=== PATIENT | female | born 1990 | race Caucasian/White ===

== ENCOUNTER 2023-04-11 13:12 | Outpatient (OUT) | payer OTHER, SELFPAY ==
[2023-04-11 14:05] LABS: HCG Quantitative 18 mIU/mL
[2023-04-12 13:07] LABS: Progesterone 10.4 ng/mL (.)
== END 2023-04-11 13:13 | disposition home or self-care (01) ==
LOC: LAB 13:17
PROVIDERS: PCP Obstetrics & Gynecology; Visit Provider Obstetrics & Gynecology
DX: Z32.01 Encounter for pregnancy test, result positive (principal)
CPT/HCPCS: 36415; 84144; 84702

== ENCOUNTER 2024-08-21 16:18 | Outpatient (OUT) | payer OTHER, SELFPAY ==
--- OUTSIDE RECORDS SUMMARY | 2024-08-21 16:22 | XMS_ITS | Clinical Summary ---
Author Organization [facility] Address [address] [place] [address] Care Team Providers Care Stave Inspector Name Role Phone Unallocated, Noms Provider Primary Care Provi tammie Allergies No known active allergies Medications aspirin 81 MG EC tablet Take 81 mg by mouth Daily Active Social History Tobacco Use Types Packs/Day Years Used Date Smoking Tobacco: Never Smokeless Tobacco: Never Tobacco Cessation:Counseling Given: Not Answered Alcohol Use Standard Drinks/Week Comments Never 0 (1 standard drink = 0.6 oz pur e alcohol) Comments Unknown Sex and Gender Information Value Date Recorded Sex Assigned at Not on file Legal Sex Female 12:39 PM EDT Gender Identity Not on file Sexual Orientation Not on file Last Filed Vital Signs Vital Sign Reading Time Taken Comments Blood Pressure 114/82 08/06/2023 1:10 PM EDT Pulse 82 08/13/2023 9:54 AM EDT Temperature 36.1 C (97 F) 08/13/2023 9:54 AM EDT Respiratory Rate 18 08/13/2023 9:54 AM EDT Oxygen Saturation 98% 08/13/2023 9:54 AM EDT Inhaled Oxygen Concentration - - Weight 82.6 kg (182 lb) 08/13/2023 9:54 AM EDT Height - - Body Mass Index - - Plan of Treatment Health Maintenance Due Date Last Done Comments Pap Smear 06/15/2011 Cervical Cancer Screening 2020 HPV/Cotest 2020 Influenza Vaccine (Season Ended) 2024 02/18/2023, 12/30/2021, 12/27/2020, Additional history exists Insurance [employer] Care Teams Stave Inspector Relationship Specialty Start Date End Date Unallocated, Noms Errol, [address] [place] [address] PCP - General Family Medicine 08/06/23
--- OUTSIDE RECORDS SUMMARY | 2024-08-21 16:22 | XMS_ITS | Encounter Summary ---
Author Organization [facility] Address [address] [place] [address] Care Team Providers Care Commercial Ocean Clammer Name Role Phone Unavailable Primary Care Provider Unavailabl e Source Comments In the event this information is protected by the Federal Confidentiality of Alcohol and Drug AbusePatient Records regulations: The Federal rules restrict any use of the information to criminally investigate or prosecute any alcohol or drug abuse patient.[facility] Encounter Details Date Type Department Care Team (Latest Contact Info) Description 02/04/2021 Get Medical Advice Reproductive Endocrinology Infertility [address] [place] [address] Placido Crabtree MD [address] [place] [address] Progesterone blood test Social History Tobacco Use Types Packs/Day Years Used Date Smoking Tobacco: Never Smokeless Tobacco: Never Alcohol Use Standard Drinks/Week Comments Yes 0 (1 standard drink = 0.6 oz pur e alcohol) occasionally Area Deprivation Index Answer Date Xavier rded National Score (1-100), lower number is lower ri sk Not on file 10/09/2020 State Score (1-10), lower number is lower risk N ot on file 10/09/2020 Data from: https://www.[facility] hospitalatlas.[facility]/. Last address used for calculation Not on file 10/09/2020 Comments No Sex and Gender Information Value Date Recorded Sex Assigned at Female 10/07/2020 8:08 PM EDT Legal Sex Female 1:33 PM EDT Gender Identity Female 10/07/2020 8:08 PM EDT Sexual Orientation Straight 10/07/2020 8: 08 PM EDT documented as of this encounter Plan of Treatment Not on file documented as of this encounter Visit Diagnoses Not on filedocumented in this encounter
--- OUTSIDE RECORDS SUMMARY | 2024-08-21 16:22 | XMS_ITS | Encounter Summary ---
Author Organization [facility] Address [address] [place] [address] Care Team Providers Care Behavioral Health Technician Name Role Phone Unavailable Primary Care Provider Unavailabl e Source Comments In the event this information is protected by the Federal Confidentiality of Alcohol and Drug AbusePatient Records regulations: The Federal rules restrict any use of the information to criminally investigate or prosecute any alcohol or drug abuse patient.[facility] Encounter Details Date Type Department Care Team (Latest Contact Info) Description 03/30/2021 Get Medical Advice Reproductive Endocrinology Infertility [address] [place] [address] Placido Crabtree MD [address] [place] [address] Question about scheduling my 's testing Social History Tobacco Use Types Packs/Day Years [...] N ot on file 10/09/2020 Data from: https://www.neighborhoodatlas.[facility]/. Last address used for calculation Not on [...]
--- OUTSIDE RECORDS SUMMARY | 2024-08-21 16:22 | XMS_ITS | Encounter Summary ---
Author Organization [facility] Address [address] [place] [address] Care Team Providers Care Reed Man Name Role Phone Unavailable Primary Care Provider Unavailabl e Source Comments In the event this information is protected by the Federal Confidentiality of Alcohol and Drug AbusePatient Records regulations: The Federal rules restrict any use of the information to criminally investigate or prosecute any alcohol or drug abuse patient.[facility] Encounter Details Date Type Department Care Team (Latest Contact Info) Description 02/04/2021 Patient Msg Reproductive Endocrinology Infertility [address] [place] [address] Placido Crabtree MD [address] [place] [address] I will be a few min late Social History Tobacco Use Types Packs/Day Years [...] N ot on file 10/09/2020 Data from: https://www.neighborhoodatlas.[facility]/. Last address used for calculation Not [...]
--- OUTSIDE RECORDS SUMMARY | 2024-08-21 16:22 | XMS_ITS | Encounter Summary ---
Author Organization [facility] Address [address] [place] [address] Care Team Providers Care Maintenance Painter Apprentice Name Role Phone Unavailable Primary Care Provider Unavailabl e Source Comments In the event this information is protected by the Federal Confidentiality of Alcohol and Drug AbusePatient Records regulations: The Federal rules restrict any use of the information to criminally investigate or prosecute any alcohol or drug abuse patient.[facility] Encounter Details Date Type Department Care Team (Latest Contact Info) Description 10/13/2020 Patient Msg Reproductive Endocrinology Infertility [address] [place] [id number] Provider, [facility] Regarding Scheduling the Pelvic US as requested by Dr. Hodges Social History Tobacco Use Types Packs/Day Years [...] N ot on file 10/09/2020 Data from: https://www.neighborhoodatlas.med[facility].edu/. Last address used for calculation Not on file 10/09/2020 Comments No Sex and Gender Information Value Date Recorded Sex Assigned at Female 10/07/2020 8:08 PM EDT Legal Sex Female 1:33 PM EDT Gender Identity Female 10/07/2020 8:08 PM EDT Sexual Orientation Straight 10/07/2020 8: 08 PM EDT COVID-19 Exposure Response Date Recorded In the last month, have you been in contact with someone who was confirmed or suspected to have Coronavirus / COVID-19? No / Unsure 10/13/2020 1:21 PM EDT documented as of this encounter Plan of Treatment Not on file documented as of this encounter Visit Diagnoses Not on filedocumented in this encounter
--- OUTSIDE RECORDS SUMMARY | 2024-08-21 16:22 | XMS_ITS | Clinical Summary ---
Author Organization [facility] Address [address] [place] [address] Care Team Providers Care Equity Structurer Name Role Phone Unavailable Primary Care Provider Unavailabl e Allergies Active Allergy Reactions Criticality Noted Date Comments Seasonal Allergies Other: See Comments 10/10/19 21 Hay fever Medications Cetirizine (ZYRTEC) 10 mg cap Take 10 mg by mouth once daily. 09/07/2020 Active L. mariano/L. hugo/L. hudson/L. rham ([facility]AL) Take 1 tablet by mouth once daily. 05/19/2020 Active PNV with Ca,No.74-Iron-FA ( LOW IRON) 27 mg iron- 1 mg tab Take 1 tablet by mouth once daily. 04/21/2019 Active Family History Medical History Relation Comments 2 brothers Brother A fib Father Kidney stones Father precancerous skin lesions removed Father Liver Cancer Maternal Grandfather Hypertension Maternal Grandmother esophagus issues Maternal Grandmother Hypertension Mother Lipids Mother esophageal cancer Paternal Grandfather Breast Cancer Paternal Grandmother gi cancer Paternal Grandmother 1 sister Sister Relation Status Comments Brother Alive Father Alive Maternal Grandfather Maternal Grandmother Mother Alive Paternal Grandfather Paternal Grandmother Sister Alive Social History Tobacco Use Types Packs/Day Years [...] N ot on file 10/09/2020 Data from: https://www.neighborhoodatlas.[facility]/. Last address used for calculation Not on file 10/09/2020 Comments No Sex and Gender Information Value Date Recorded Sex Assigned at Female 10/07/2020 8:08 PM EDT Legal Sex Female 1:33 PM EDT Gender Identity Female 10/07/2020 8:08 PM EDT Sexual Orientation Straight 10/07/2020 8: 08 PM EDT Last Filed Vital Signs Vital Sign Reading Time Taken Comments Blood Pressure - - Pulse - - Temperature - - Respiratory Rate - - Oxygen Saturation - - Inhaled Oxygen Concentration - - Weight - - Height 157.5 cm (5' 2 ) 10/09/2020 3:48 PM EDT Body Mass Index - - Plan of Treatment Health Maintenance Due Date Last Done Comments Anxiety Screening 2008 Depression Screening 2008 HIV Screening 2008 Hepatitis C Screening 2008 DTaP,Tdap,Td Vaccine (1 - Tdap) 2009 Hepatitis B Vaccine (1 of 3 - 19+ 3-dose series) 06/14 Cervical Cancer Screening 04/17/2023 04/17/2020 Covid-19 Vaccine ( - season) 2023 Influenza Vaccine (Season Ended) 2024 01/24/20 16 Insurance [employer]
--- OUTSIDE RECORDS SUMMARY | 2024-08-21 16:22 | XMS_ITS | Encounter Summary ---
Author Organization [facility] Address [address] [place] [address] Care Team Providers Care Hotel Sales Manager Name Role Phone Unavailable Primary Care Provider Unavailabl e Source Comments In the event this information is protected by the Federal Confidentiality of Alcohol and Drug AbusePatient Records regulations: The Federal rules restrict any use of the information to criminally investigate or prosecute any alcohol or drug abuse patient.[facility] Encounter Details Date Type Department Care Team (Late st Contact Info) Description 10/09/2020 Patient Msg Reproductive Endocrinology Infertility [address] [place] [address] Placido Diop MD [address] [place] [address] Plans; Social History Tobacco Use Types Packs/Day Years [...] N ot on file 10/09/2020 Data from: https://www.neighborhoodatlas.medicine.[facility]/. Last address used for calculation Not on [...] have Coronavirus / COVID-19? No / Unsure 10/09/2020 3:55 PM EDT documented as of this encounter Plan of Treatment Not on file documented as of this encounter Visit Diagnoses Not on filedocumented in this encounter
--- OUTSIDE RECORDS SUMMARY | 2024-08-21 16:22 | XMS_ITS | Encounter Summary ---
Author Organization [facility] Address [address] [place] [address] Care Team Providers Care Corporate Paralegal Name Role Phone Unavailable Primary Care Provider Unavailabl e Source Comments In the event this information is protected by the Federal Confidentiality of Alcohol and Drug AbusePatient Records regulations: The Federal rules restrict any use of the information to criminally investigate or prosecute any alcohol or drug abuse patient.[facility] Encounter Details Date Type Department Care Team (Latest Contact Info) Description 12/17/2020 Get Medical Advice Reproductive Endocrinology Infertility [address] [place] [address] Placido Crabtree MD [address] [place] [address] RE: Visit Follow Up Question Social History Tobacco Use Types Packs/Day Years [...] N ot on file 10/09/2020 Data from: https://www.neighborhoodatlas.[facility]/. Last address used for calculation Not on [...]
--- OUTSIDE RECORDS SUMMARY | 2024-08-21 16:22 | XMS_ITS | Encounter Summary ---
Author Organization [facility] Address [address] [place] [address] Care Team Providers Care Furrier Shop Supervisor Name Role Phone Unavailable Primary Care Provider Unavailabl e Source Comments In the event this information is protected by the Federal Confidentiality of Alcohol and Drug AbusePatient Records regulations: The Federal rules restrict any use of the information to criminally investigate or prosecute any alcohol or drug abuse patient.[facility] Encounter Details Date Type Department Care Team (Late st Contact Info) Description 02/11/2021 Patient Msg Reproductive Endocrinology Infertility [address] [place] [address] Placido Diop MD [address] [place] [address] your blood test Social History Tobacco Use Types [...] N ot on file 10/09/2020 Data from: https://www.neighborhoodatlas.[facility]/. Last address used for calculation [...]
[2024-08-21 16:49] LABS: Basophils Absolute Auto 0.1 10^3/uL (0.0-0.1); Basophils Percent Auto 0.5 % (0.2-2.0); Eosinophils Absolute Auto 0.5 10^3/uL (0.0-0.7); Eosinophils Percent Auto 4.6 % (0.9-7.0); Hematocrit 38.9 % (36.0-48.0); Hemoglobin 13.2 g/dL (12.0-16.0); Immature Granulocytes Abs Auto 0.05 10^3/uL (0.00-0.03); Immature Granulocytes Pct Auto 0.5 % (0.0-0.5); Lymphocytes Absolute Auto 2.8 10^3/uL (1.2-3.8); Lymphocytes Percent Auto 28.6 % (20.5-60.0); Mean Corpuscular HGB Conc 33.9 g/dL (29.9-35.2); Mean Corpuscular Hemoglobin 29.7 pg (26.7-34.0); Mean Corpuscular Volume 87.4 fL (81.0-99.0); Mean Platelet Volume 9.5 fL (9.5-13.5); Monocytes Absolute Auto 0.8 10^3/uL (0.3-0.8); Monocytes Percent Auto 8.6 % (1.7-12.0); Neutrophils Absolute Auto 5.6 10^3/uL (1.4-6.5); Neutrophils Percent Auto 57.2 % (43.0-75.0); Platelet Count 306 10^3/uL (150-450); Red Blood Count 4.45 10^6/uL (4.20-5.40); Red Cell Distribution Width 11.9 % (11.0-15.0); White Blood Count 9.8 10^3/uL (4.0-11.0)
[2024-08-21 17:19] LABS: Anion Gap 11.9; BUN Creatinine Ratio 43.1; Calcium 8.8 mg/dL (8.5-10.1); Carbon Dioxide 29.9 mmol/L (21.0-32.0); Chloride 102 mmol/L (98-107); Estimated GFR (African America >60 (>=60 mL/min/1.73m^2); Estimated GFR (Non-African Ame >60 (>=60 mL/min/1.73m^2); Glucose 78 mg/dL (74-106); Potassium 3.8 mmol/L (3.5-5.1); Sodium 140 mmol/L (136-145); Thyroid Stimulating Hormone 2.502 uIU/mL (0.358-3.740)
[2024-08-21 17:23] LABS: Free T4 0.76 ng/dL (0.76-1.46)
== END 2024-08-21 16:19 | disposition home or self-care (01) ==
LOC: LAB 16:20
PROVIDERS: PCP Family Medicine; Visit Provider Family Medicine
DX: Z00.00 Encounter for general adult medical examination without abnormal findings (principal); R53.83 Other fatigue; K59.00 Constipation, unspecified
CPT/HCPCS: 36415; 80048; 84439; 84443; 85025